=== PATIENT | female | born 1995 | race Hispanic/Latino ===

== ENCOUNTER 2018-06-26 19:36 | Outpatient (CLI) | payer MEDICAID ==
[2018-06-26] MEDS ORDERED: LACTATED RINGERS 1,000 ML IV ONE (21:36)
[2018-06-26 22:02] LABS: Bilirubin,Urine NEG (Negative); Blood,Urine NEG (Negative); Color,Urine Yellow (Yellow); Hyaline Casts,Urine 1 /LPF; Mucus,Urine 3+ /HPF; Protein,Urine <15 mg/dL mg/dL (Negative); Urobilinogen,Urine < 2.0 mg/dL (<2.0)
[2018-06-26 22:11] VITALS: BP 111/62
== END 2018-06-26 22:18 | disposition home or self-care (01) ==
LOC: TRG 19:36
PROVIDERS: ATTEND Obstetrics & Gynecology
DX: O47.03 False labor before 37 completed weeks of gestation, third trimester (principal); O24.410 Gestational diabetes mellitus in pregnancy, diet controlled; Z3A.34 34 weeks gestation of pregnancy
CPT/HCPCS: 59025; 81001

== ENCOUNTER 2018-07-10 20:14 | Outpatient (CLI) | payer MEDICAID ==
[2018-07-10] MEDS ORDERED: LACTATED RINGERS 1,000 ML IV ONE (20:56)
[2018-07-10 23:41] LABS: Bacteria,Urine 4+ /HPF (Negative); Bilirubin,Urine NEG (Negative); Blood,Urine NEG (Negative); Color,Urine Yellow (Yellow); Mucus,Urine 3+ /HPF
[2018-07-11 00:06] VITALS: BP 106/59
== END 2018-07-11 00:15 | disposition home or self-care (01) ==
LOC: TRG 20:14
PROVIDERS: ATTEND Obstetrics & Gynecology
DX: O62.9 Abnormality of forces of labor, unspecified (principal); O24.410 Gestational diabetes mellitus in pregnancy, diet controlled; Z3A.36 36 weeks gestation of pregnancy
CPT/HCPCS: 59025; 81001; 82962; 96360; J7120; 96361

== ENCOUNTER 2018-07-14 13:09 | Outpatient (CLI) | payer MEDICAID ==
[2018-07-14] MEDS ORDERED: LACTATED RINGERS 1,000 ML ONE (13:36)
[2018-07-14 14:51] LABS: Bacteria,Urine 1+ /HPF (Negative); Bilirubin,Urine NEG (Negative); Blood,Urine NEG (Negative); Color,Urine Yellow (Yellow); Hyaline Casts,Urine 1 /LPF; Mucus,Urine 3+ /HPF; Protein,Urine <15 mg/dL mg/dL (Negative); Urobilinogen,Urine < 2.0 mg/dL (<2.0)
[2018-07-14] MEDS ORDERED: LACTATED RINGERS 500 ML IV ONE (15:00)
[2018-07-14 16:28] VITALS: BP 119/74
--- NOTE | 2018-07-14 16:41 | Ultrasound Report ---
PROCEDURE: US OB LIMITED HISTORY: JADON FINDINGS: Real-time ultrasound of the pelvis was performed by transabdominal technique. Biophysical p rofile was also performed. There is a single live intrauterine gestation in cephalic lie. Amniotic fluid index was 23.3 cm which is normal. cardiac activity is present 145 bpm. Biophysical profile was 8 of 8. IMPRESSION: Amniotic fluid index 23.3 cm Biophysical profile 8 of 8 Amniotic This document is electronically signed by Shankar Martinez MD., July 14 2018 04:39:35 PM ET
--- NOTE | 2018-07-14 16:42 | Ultrasound Report ---
PROCEDURE: US OB BPP WO NON-STRESS HISTORY: BPP FINDINGS: Real-time ultrasound of the pelvis was performed by transabdominal technique. Biophysical p rofile was also performed. There is a single live intrauterine gestation in cephalic lie. Amniotic fluid index was 23.3 cm which is normal. cardiac activity is present 145 bpm. Biophysical profile was 8 of 8. IMPRESSION: Amniotic fluid index 23.3 cm Biophysical profile 8 of 8 This document is electronically signed by Shankar Martinez MD., July 14 2018 04:39:54 PM ET
[2018-07-14] MEDS ORDERED: VISTARIL PO PRN (16:44)
[2018-07-14] MEDS ORDERED: PROCARDIA*For Tocolysis only PO ONE (16:46)
[2018-07-14] MEDS ORDERED: PROCARDIA*For Tocolysis only ONE (16:51)
== END 2018-07-14 17:13 | disposition home or self-care (01) ==
LOC: TRG 13:09
PROVIDERS: ATTEND Obstetrics & Gynecology
DX: O47.03 False labor before 37 completed weeks of gestation, third trimester (principal); Z3A.36 36 weeks gestation of pregnancy
CPT/HCPCS: 59025; 76815; 76819; 81001; J7120; Q0177

== ENCOUNTER 2018-07-30 05:43 | Inpatient (IN) | payer MEDICAID ==
[2018-07-30] MEDS ORDERED: LACTATED RINGERS 2,000 ML ONE (06:24)
[2018-07-30] MEDS ORDERED: PEPCID IV ONE (06:35)
[2018-07-30] MEDS ORDERED: BICITRA PO ONE (06:35)
[2018-07-30] MEDS ORDERED: REGLAN IV ONE (06:35)
[2018-07-30] MEDS ORDERED: LACTATED RINGERS 1,000 ML IV SCH (07:00)
[2018-07-30] MEDS ORDERED: PITOCin/NS 20 UNIT/1000ML DRIP 20 UNITS/1,000 ML BAG IV SCH ×2 (07:00→12:09)
[2018-07-30] MEDS ORDERED: ANCEF/STERILE WATER 2 GM/20 ML 2 GM/20 ML SYRINGE IV NR (07:00)
[2018-07-30 07:10] LABS: Basophils % (Auto) 0.6 % (0.0-1.8); Eosinophils # (Auto) 0.1 K/mm3 (0.0-0.4); Eosinophils % (Auto) 1.3 % (0.0-4.3); Hematocrit 34.6 % (30.3-42.9); Hemoglobin 11.5 gm/dl (10.1-14.3); Lymphocytes # (Auto) 1.9 K/mm3 (1.2-5.4); Lymphocytes % (Auto) 29.9 % (13.4-35.0); Mean Corpuscular HGB Conc 33 % (30-34); Mean Corpuscular Volume 82 fl (79-97); Monocytes # (Auto) 0.5 K/mm3 (0.0-0.8); Monocytes % (Auto) 8.2 % (0.0-7.3); Platelet Count 290 K/mm3 (140-440); Red Blood Count 4.22 M/mm3 (3.65-5.03); Red Cell Distribution Width 14.4 % (13.2-15.2)
[2018-07-30] MEDS ORDERED: SUBLIMAZE ONE (07:12)
[2018-07-30] MEDS ORDERED: ZOFRAN IV PRN ×2 (07:30→12:09)
[2018-07-30] MEDS ORDERED: NARCAN 0.4 MG/1 ML IV PRN ×2 (07:30→12:09)
[2018-07-30] MEDS ORDERED: DILAUDID IV PRN (07:30)
[2018-07-30] MEDS ORDERED: SODIUM CHLORIDE FLUSH SYRINGE 10 ML IV PRN (08:00)
[2018-07-30] MEDS ORDERED: NACL 0.9% IR ONE (08:14)
[2018-07-30] MEDS ORDERED: ANCEF IV ONE (08:14)
[2018-07-30] MEDS ORDERED: WATER FOR IRRIG STERILE IR ONE (08:14)
--- NOTE | 2018-07-30 08:25 | History and Physical Report ---
History of Present Illness Date of examination: 07/30/18 Date of admission: 07/30/18 05:43 Chief complaint: I'm here for my History of present illness: Patient is 22 year old who presents for elective repeat at 39 weeks. She has course complicated by a misplaced IUD early in the and gestational diabetes which is controlled with oral meds. She entered care at 10 weeks and all labs have been negative. Past History Past Medical History: no pertinent history Past Surgical History: section Social history: - Obstetrical History Expected Date of Delivery: 08/06/18 Actual Gestation: 39 Week(s) 0 Day(s) : 4 Para: 2 Medications and Allergies Allergies Allergy/AdvReac Type Severity Reaction Status Date / Time No Known Allergies Allergy Verified 07/10/18 20:55 Home Medications Medication Instructions Recorded Confirmed Last Taken Type Vit,Calc76/Iron/Folic 1 tab PO DAILY 07/10/18 07/30/18 07/28/18 08:00 History [Pnv 29-1 Tablet] glyBURIDE [Glyburide] 2.5 mg PO DAILY 07/10/18 07/30/18 07/28/18 08:00 History Active Meds: Active Medications Hydromorphone HCl (Dilaudid) 0.5 mg IV Q5M PRN PRN Reason: Breakthrough Pain Stop: 07/30/18 14:00 Lactated Ringer's (Lactated Ringers) 1,000 mls @ 2,250 mls/hr IV PREOP AMERICO Stop: 07/31/18 07:27 Last Admin: 07/30/18 06:15 Dose: 2,250 mls/hr Documented by: Oxytocin/Sodium Chloride (Pitocin/Ns 20 Unit/1000ml Drip) 20 units in 1,000 mls @ 0 mls/hr IV TITR AMERICO Naloxone HCl (Narcan 0.4 Mg/1 Ml) 0.2 mg IV Q2MIN PRN PRN Reason: Res Rate </= 8 or 02 SAT < 92% Ondansetron HCl (Zofran) 4 mg IV Q8H PRN PRN Reason: Nausea And Vomiting Sodium Chloride (Sodium Chloride Flush Syringe 10 Ml) 10 ml IV PRN PRN PRN Reason: flush Review of Systems All systems: negative Gastrointestinal: abdominal pain Rectal Exam: deferred - Vital Signs Vital signs: Vital Signs Temp Pulse Resp BP 97.9 F 98 H 18 122/68 07/30/18 06:10 07/30/18 06:10 07/30/18 06:10 07/30/18 06:10 Temp Pulse Resp BP Pulse Ox 97.9 F 98 H 18 122/68 07/30/18 06:10 07/30/18 06:35 07/30/18 06:10 07/30/18 06:35 - Physical Exam Breasts: Positive: deferred Cardiovascular: Regular rate, Normal S1, Normal S2 Lungs: Positive: Clear to auscultation, Normal air movement Abdomen: Positive: normal appearance, soft, normal bowel sounds Genitourinary (Female): Positive: normal external genitalia, normal perenium Vulva: both: normal Uterus: Positive: normal size Deep Tendon Reflex Grade: Normal +2 Results Result Diagrams: 07/30/18 06:10 Abnormal lab results 07/30/18 Range/Units 06:10 MCH 27 L (28-32) pg [place] % (Auto) 8.2 H (0.0-7.3) % All other labs normal. Assessment and Plan IUP at 39.1 weeks here for elective repeat . Consents signed and on chart. Will proceed with surgery as planned.
[2018-07-30] MEDS ORDERED: TORADOL ONE (09:21)
--- NOTE | 2018-07-30 09:45 | Procedure Note ---
OB Delivery Note - Delivery Date of Delivery: 07/30/18 Surgeon: TRISHA SARGENT Estimated blood loss: 500cc - Section Preop diagnosis: repeat Postop diagnosis: same section procedure: repeat low transverse Disposition: PACU Complications: none Narrative: see op report - Infant A at 1 minute: 9 at 5 minutes: 9 Gender: Male (3910 g, 8 pounds 10 ounces)
--- NOTE | 2018-07-30 09:49 | Operative Report ---
Operative Report Operative Report: The operative report for patient Ro Portillo Date of service 07/30/2018 Preoperative diagnosis: Intrauterine at 39 weeks 2. Previous x 2 Postoperative diagnosis: Same Procedure: Repeat low transverse section Surgeon: Dr. Maite Sierra EBL: 500 mL Urine output: 150 mL IV fluids: 1200 mL LR Findings: Viable male in the vertex occiput anterior position. Weight 8 lbs. 10 oz. 3910 g Apgars 9 and 9]. Otherwise normal pelvic anatomy Specimens: None Complications: None Procedure: The patient was admitted to the OR with IV running and in place. She was properly identified as herself. She was given spinal anesthesia in the OR without difficulty.. She was placed in the dorsal supine position with a leftward tilt. A Maurice catheter was inserted. She was then prepped and draped in the normal sterile fashion. An Allis test was used to confirm adequate anesthesia. Once confirmed, the incision was made with the scalpel and carried to the underlying fascia using the scalpel and the Bovie. The fascia was incised in the midline and incision was extended bilaterally using the curved Marshall scissors. The fascia was then dissected from the underlying rectus muscles in a series of sharp and blunt dissection using the Marshall scissors. Muscles were in the in the midline sharply using Metzenbaum scissors and the peritoneum was entered into bluntly using the surgeon's fingers. A bladder blade was then placed into the incision to protect the bladder. Following this the bladder flap was created. Hysterotomy incision was then made in the scalpel. Upon uterine entry, the amniotic sac was ruptured for clear fluid. The infant was then delivered in the occiput anterior position. His mouth and nose were suctioned on the field. The cord was clamped and cut and he was handed to the waiting NICU personnel. The placenta was delivered manually and taken off the field. The uterus was then exteriorized and cleared of all clots and debris. The hysterotomy incision was then closed in a running locked fashion using 0 Vicryl. The abdomen was then copiously irrigated with warm normal saline. Following this the uterus was replaced into the abdominal cavity. At this point the muscles were reapproximated in the midline using individual sutures of 0 Vicryl. Following this the fascia was closed in a running fashion using 0 Vicryl. Tissue was then copiously irrigated. A retention suture was placed in the subcuticular fat. Skin was closed in a running fashion using 3-0 Monocryl. The sponge lap needle and instrument counts were correct 2. The patient tolerated the procedure well. She was taken to recovery in stable condition.
--- NOTE | 2018-07-30 10:01 | Post Anesthesia Evaluation ---
- Post Anesthesia Evaluation Patient Participated: Yes Airway Patent: Yes Stable Respiratory Function: Yes Nausea/Vomiting: No Temp > 96.8F: Yes Pain Manageable: Yes Adequeate Hydration: Yes Anesthesia Complications: No Block Receding Appropriately: Yes Patient on Ventilator: No Other Comments: Explained to patient the expected regression of the block and post operative pain control in PACU. Explained that after PACU time, pain will be managed by OBGYN. Questions answered and care turned over to nursing staff.
[2018-07-30] MEDS ORDERED: AFLURIA QUAD 2018-2019 SYRINGE IM ONE (12:00)
[2018-07-30] MEDS ORDERED: PHENERGAN PR PRN (12:09)
[2018-07-30] MEDS ORDERED: MORPHINE IV PRN (12:09)
[2018-07-30] MEDS ORDERED: LANSINOH TP PRN (12:09)
[2018-07-30] MEDS ORDERED: TORADOL IV PRN (12:09)
[2018-07-30] MEDS ORDERED: SODIUM CHLORIDE FLUSH SYRINGE 10 ML IV SCH (12:09)
[2018-07-30] MEDS ORDERED: TUCKS PAD TP PRN (12:09)
[2018-07-30] MEDS ORDERED: SENOKOT PO PRN (12:09)
[2018-07-30] MEDS ORDERED: MYLICON PO PRN (12:09)
[2018-07-30] MEDS ORDERED: D5LR 1,000 ML IV SCH (13:09)
[2018-07-30] MEDS: PERCOCET 5/325 PO PRN ×3 (13:30→21:35)
[2018-07-30] MEDS: IBUPROFEN PO PRN (13:31)
[2018-07-30 23:42] LABS: Hematocrit 29.5 % (30.3-42.9); Hemoglobin 9.7 gm/dl (10.1-14.3)
[2018-07-31] MEDS: IBUPROFEN PO PRN ×2 (04:00→14:05)
[2018-07-31] MEDS: PERCOCET 5/325 PO PRN ×5 (05:16→21:10)
[2018-07-31] MEDS ORDERED: BOOSTRIX IM ONE (06:00)
[2018-08-01] MEDS: IBUPROFEN PO PRN ×3 (05:30→22:19)
[2018-08-01] MEDS: PERCOCET 5/325 PO PRN (06:11)
--- NOTE | 2018-08-01 09:52 | Progress Note ---
Assessment and Plan Pt is POD 2 s/p rltcs. Doing well. Continue routine care. Encourage ambulation. Plan for discharge on tomorrow. Subjective - Subjective Date of service: 08/01/18 Interval history: Patient is 22 year old who presents for elective repeat at 39 weeks. She has course complicated by a misplaced IUD early in the and gestational diabetes which is controlled with oral meds. Pt was planning on adoption out, but now seems to have changed her mind. Patient reports: appetite normal, voiding normally, pain well controlled, ambulating normally : doing well Objective - Vital Signs Latest vital signs: Vital Signs Temp Pulse Resp BP BP Pulse Ox 08/01/18 08:35 97.7 F 83 20 117/63 07/31/18 23:50 98.7 F 88 16 116/70 95 07/31/18 15:52 98.9 F 75 16 120/71 100 Intake and Output 07/31/18 08/01/18 08/01/18 22:59 06:59 14:59 Intake Total 120 300 320 Balance 120 300 320 Intake: Oral 120 320 Intake, Free Water 300 Other: Total, Intake Amount 120 320 # Voids Void 1 1 - Exam Breasts: Present: deferred Cardiovascular: Present: Regular rate, Normal S1, Normal S2 Lungs: Present: Clear to auscultation, Normal air movement Abdomen: Present: normal appearance, soft, normal bowel sounds Vulva: both: normal Uterus: Present: normal, firm Extremities: Present: normal Deep Tendon Reflex Grade: Normal +2 Incision: Present: normal, dry, intact, dressed
--- NOTE | 2018-08-01 09:56 | Discharge Summary ---
Providers - Providers Date of Admission: 07/30/18 05:43 Date of discharge: 08/02/18 Attending physician: TRISHA SARGENT Primary care physician: TRISHA SARGENT Hospitalization Reason for admission: section Delivery: Procedure: repeat low transverse Procedure details: see op report Incision: normal, dry, intact Discharge diagnosis: IUP at term delivered [place] baby: male Hospital course: unremarkable Condition at discharge: Good Disposition: DC-01 TO HOME OR SELFCARE Plan - Discharge Medications Prescriptions: Docusate Sodium [Colace] 100 mg PO BID PRN #60 capsule PRN Reason: Constipation Ibuprofen [Motrin 800 MG tab] 800 mg PO Q6H PRN #40 tablet PRN Reason: Pain, Mild (1-3) oxyCODONE /ACETAMINOPHEN [Percocet 5/325 mg] 2 tab PO Q4H PRN #30 tablet PRN Reason: Pain, Moderate (4-6) - Provider Discharge Summary Activity: routine, no sex for 6 weeks, no heavy lifting 4 weeks, no strenuous exercise Diet: routine Instructions: routine Additional instructions: [] Smoking cessation referral if applicable(refer to patient education folder for contact #) [] Refer to [facility] Booklet Call your doctor immediately for: * Fever > 100.5 * Heavy vaginal bleeding ( >1 pad per hour) * Severe persistent headache * Shortness of breath * Reddened, hot, painful area to leg or breast * Drainage or odor from incision. * Keep incision clean and dry at all times and follow doctor's instructions regarding bathing/showering - Follow up plan Follow up: TRISHA SARGENT MD [Primary Care Provider] - 14 Days
[2018-08-02] MEDS: IBUPROFEN PO PRN ×2 (06:39→10:30)
[2018-08-02] MEDS ORDERED: BOOSTRIX IM ONE (07:14)
[2018-08-02] MEDS ORDERED: AFLURIA QUAD 2018-2019 SYRINGE IM ONE (12:00)
[2018-08-02] MEDS: PERCOCET 5/325 PO PRN (12:01)
[2018-08-02 14:14] VITALS: BP 126/73
== END 2018-08-02 14:30 | disposition home or self-care (01) | DRG 766 ==
LOC: APU 05:43 → LD 06:00 → OB 11:39
PROVIDERS: ADMIT Obstetrics & Gynecology; ATTEND Obstetrics & Gynecology
PROC: 10D00Z1 Extraction of Products of Conception, Low, Open Approach (ICD-10-PCS; principal; 2018-07-30)
PROC: 3E0234Z Introduction of Serum, Toxoid and Vaccine into Muscle, Percutaneous Approach (ICD-10-PCS; 2018-07-31)
DX: O34.211 Maternal care for low transverse scar from previous cesarean delivery (principal); O24.425 Gestational diabetes mellitus in childbirth, controlled by oral hypoglycemic drugs; O99.214 Obesity complicating childbirth; E66.01 Morbid (severe) obesity due to excess calories; Z3A.39 39 weeks gestation of pregnancy; Z37.0 Single live birth; Z23 Encounter for immunization
CPT/HCPCS: 36415; 85014; 85018; 85025; 86850; 86900; 86901; 88307; 90471; 90686; 90715; G0378; J0690; J1885; J2590; J2765; J3010; J7120; J7121

== ENCOUNTER 2018-09-19 07:02 | Day surgery (SDC) | payer MEDICAID ==
[~2018-09-19 07:02] MED LIST: MARCAINE 0.25% INFILTRATI ONE
--- NOTE | 2018-09-19 08:17 | Anesthesia Consultation ---
Anesthesia Consult and Med Hx Date of service: 09/19/18 - Airway Anesthetic Teeth Evaluation: Good ROM Head & Neck: Adequate Mental/Hyoid Distance: Adequate Mallampati Class: Class II Intubation Access Assessment: Good - Pulmonary Exam CTA: Yes - Cardiac Exam Cardiac Exam: RRR - Pre-Operative Health Status ASA Pre-Surgery Classification: ASA1 Proposed Anesthetic Plan: General - Pulmonary Hx Asthma: No COPD: No Hx Pneumonia: No - Cardiovascular System Hx Hypertension: No - Central Nervous System Hx Seizures: No Hx Psychiatric Problems: No - Endocrine Hx Renal Disease: No Hx End Stage Renal Disease: No Hx Insulin Dependent Diabetes: No Hx Hypothyroidism: No Hx Hyperthyroidism: No - Hematic Hx Anemia: No Hx Sickle Cell Disease: No - Other Systems Hx Alcohol Use: No - Additional Comments Anesthesia Medical History Comments: Healthy 22 year old not on any medications, for GA
--- NOTE | 2018-09-19 08:18 | Anesthesia Day of Surgery ---
Anesthesia Day of Surgery - Day of Surgery Patient Examined: Yes Patient H&P Reviewed: Yes Patient is NPO: Yes
[2018-09-19] MEDS ORDERED: ZOFRAN IV PRN ×2 (08:19→10:29)
[2018-09-19] MEDS ORDERED: DILAUDID IV PRN ×2 (08:19→10:29)
[2018-09-19] MEDS ORDERED: MARCAINE 0.25% INFILTRATI ONE ×2 (08:50→10:00)
[2018-09-19] MEDS ORDERED: METHYLENE BLUE ONE (08:50)
--- NOTE | 2018-09-19 08:53 | Short Stay Summary ---
Short Stay Documentation Date of service: 09/19/18 Narrative H&P: Patient is here for elective sterilization after tubal ligation. All consents have been signed and placed on chart. - History Principal diagnosis: Undesired fertility Past Medical History: No medical history Past Surgical History: (x 3) Social history: single - Allergies and Medications Current Medications: Allergies No Known Allergies Allergy (Verified 07/10/18 20:55) Home Medications Medication Instructions Recorded Confirmed Last Taken Type Vit,Calc76/Iron/Folic 1 tab PO DAILY 07/10/18 07/30/18 07/28/18 08:00 History [Pnv 29-1 Tablet] glyBURIDE [Glyburide] 2.5 mg PO DAILY 07/10/18 07/30/18 07/28/18 08:00 History Docusate Sodium [Colace] 100 mg PO BID PRN #60 capsule 08/01/18 Unknown Rx Ibuprofen [Motrin 800 MG tab] 800 mg PO Q6H PRN #40 tablet 08/01/18 Unknown Rx oxyCODONE /ACETAMINOPHEN [Percocet 2 tab PO Q4H PRN #30 tablet 08/01/18 Unknown Rx 5/325 mg] Active Medications Lactated Ringer's (Lactated Ringers) 1,000 mls @ 100 mls/hr IV DIRECT AMERICO Cefazolin Sodium (Ancef/Sterile Water 2 Gm/20 Ml) 2 gm in 20 mls @ 80 mls/hr IV PREOP NR; Protocol Midazolam HCl (Versed) 2 mg IV PREOP NR Stop: 09/19/18 23:59 Ondansetron HCl (Zofran) 4 mg IV ONCE PRN PRN Reason: Nausea And Vomiting Stop: 09/19/18 16:00 - Physical exam General appearance: no acute distress Lungs: Clear to auscultation Breasts: deferred Heart: Regular rate, Normal S1, Normal S2 Gastrointestinal: normal, normoactive bowel sounds Female Genitourinary: normal Rectal Exam: deferred Extremities: no ischemia, No edema - Brief post op/procedure progress note Date of procedure: 09/19/18 Pre-op diagnosis: undesired fertilitu Post-op diagnosis: same Procedure: Laparoscopic Bilateral partial salpingectomy Anesthesia: GETA Findings: anterior uterine adhesions, normal tubes and ovaries Surgeon: TRISHA SARGENT Estimated blood loss: minimal Pathology: list (portion of right and left tube) Specimen disposition: to lab Condition: stable - Hospital course Hospital course: unremarkable - Disposition Condition at discharge: Good Disposition: DC-01 TO HOME OR SELFCARE Short Stay Discharge Plan Activity: advance as tolerated Weight Bearing Status: Weight Bear as Tolerated Diet: regular Follow up with: TRISHA SARGENT MD [Staff Physician] - 14 Days Prescriptions: Ibuprofen [Motrin 800 MG tab] 800 mg PO Q6H PRN #40 tablet PRN Reason: Pain, Mild (1-3) oxyCODONE /ACETAMINOPHEN [Percocet 5/325 mg] 2 tab PO Q4H PRN #30 tablet PRN Reason: Pain, Moderate (4-6)
[2018-09-19] MEDS ORDERED: LACTATED RINGERS 1,000 ML IV SCH (09:00)
[2018-09-19] MEDS ORDERED: VERSED IV NR (09:00)
[2018-09-19] MEDS ORDERED: ANCEF/STERILE WATER 2 GM/20 ML 2 GM/20 ML SYRINGE IV NR (09:00)
[2018-09-19] MEDS ORDERED: SUBLIMAZE ONE (09:31)
[2018-09-19] MEDS ORDERED: ZEMURON IV ONE (09:31)
[2018-09-19] MEDS ORDERED: XYLOCAINE MPF 2% ONE (09:31)
[2018-09-19] MEDS ORDERED: DIPRIVAN 10 MG/ML IV ONE (09:32)
[2018-09-19] MEDS ORDERED: DECADRON ONE (09:58)
[2018-09-19] MEDS ORDERED: ZOFRAN ONE (09:58)
[2018-09-19] MEDS ORDERED: BLOXIVERZ ONE (10:02)
[2018-09-19] MEDS ORDERED: ROBINUL ONE (10:02)
[2018-09-19] MEDS ORDERED: DILAUDID ONE (10:04)
--- NOTE | 2018-09-19 10:21 | Operative Report ---
Operative Report Operative Report: Preoperative diagnosis: Undesired fertility Postoperative diagnosis: Same Procedure: Bilateral laparoscopic partial salpingectomy Surgeon: Maite Sierra Anesthesia: General EBL: Minimal IV fluids: 900 mL LR Urine output: 50 mL Findings: Normal uterus with anterior adhesions to the anterior abdominal wall, normal tubes and ovaries Specimens: Portion of right and left fallopian tube Complications: None The patient was properly identified as herself. She was then taken to the OR with IV running and in place. She was given general anesthesia without difficulty. She was placed in a dorsal lithotomy position. She was then prepped and draped in normal sterile fashion. Attention was turned to the patient's vagina. Her bladder was drained of clear urine with a red rubber catheter. The speculum was then placed the patient's vagina. The cervix was visualized and grasped with tenaculum. The acorn cannula was then inserted. The surgeon's gloves were changed and attention turned to the patient's abdomen. A small incision was made in the patient's umbilicus incision a 5 mm trocar was placed. The laparoscope confirmed intra-abdominal placement. The abdomen was insufflated with CO2 gas to approximately 25 mmHg. Both fallopian tubes were identified. With direct visualization a second trocar was placed through an incision in the left lower quadrant. Both tubes were found and followed out to the fimbriated ends. Each tube was cauterized at the portion nearest the cornua , then cauterized across the broad ligament until the tube was completely detached. There was excellent hemostasis at the end of this portion of the procedure. Each tube was handed off for pathology. At this point the abdomen was deflated. All instruments were then removed from the abdomen. The incisions were then closed with 4-0 Monocryl. The incisions were also injected with quarter percent Marcaine. The patient tolerated the procedure well she was then awakened and taken recovery in stable condition. Sponge needle and instrument counts were correct 2.
[2018-09-19] MEDS ORDERED: IBUPROFEN PO PRN (11:30)
[2018-09-19] MEDS ORDERED: PERCOCET 5/325 PO PRN (11:30)
[2018-09-19 13:26] VITALS: BP 106/53
== END 2018-09-19 12:35 | disposition home or self-care (01) ==
LOC: OR 07:02
PROVIDERS: ATTEND Obstetrics & Gynecology
DX: Z30.2 Encounter for sterilization (principal); Z79.899 Other long term (current) drug therapy; Z98.891 History of uterine scar from previous surgery; Z83.3 Family history of diabetes mellitus
CPT/HCPCS: 58670; 81025; 88302; J0690; J1100; J1170; J2250; J2405; J2704; J2710; J3010; J7120; Q9968